=== PATIENT | female | born 1935 | race Caucasian/White ===

== ENCOUNTER 2016-06-13 18:23 | Emergency (ER) | payer OTHER ==
[~2016-06-13] VITALS: Ht 162.6 cm; Wt 74.5 kg
[~2016-06-13 18:23] MED LIST: ACTONEL150 MG PO; Aspirin E.C. PO; GEMFIBROZIL600 MG PO; MECLIZINE HCL12.5 M2 PO; Vitamin D PO
[2016-06-13 19:35] LABS: MCH 30.5 PG (29.0-34.0); MCV 92.5 FL (83-99); PLATELET COUNT 279 K/uL (156-360); RBC DIS.WIDTH-CV 12.9 % (11.8-14.6); RBC DIS.WIDTH-SD 42.7 % (39-53); WHITE BLOOD COUNT 9.2 K/uL (4.1-10.2)
[2016-06-13 19:42] LABS: CHLORIDE 104 mEq/L (99-109); POTASSIUM 4.8 mEq/L (3.7-5.4); SODIUM 140 mEq/L (136-147)
[2016-06-13 19:43] LABS: GLUCOSE 122 mg/dL (70-99)
[2016-06-13 19:45] LABS: ANION GAP 13 MEQ/L (2-14)
[2016-06-13 19:47] LABS: GFR ESTIMATE (CALCULATED) 51 mL/min/
[2016-06-13 19:48] LABS: UREA NITROGEN (BUN) 25 mg/dL (9-23)
[2016-06-13 19:54] LABS: TROP-I INTERPRETATION NEGATIVE; TROPONIN-I < 0.01 ng/mL (0.0-0.30)
[2016-06-13 21:09] VITALS: BP 161/71
== END 2016-06-13 21:30 | disposition home or self-care (01) ==
LOC: EME 18:23
DX: T39.395A Adverse effect of other nonsteroidal anti-inflammatory drugs [NSAID], initial encounter (principal); R11.0 Nausea; R42 Dizziness and giddiness; E78.5 Hyperlipidemia, unspecified; Z79.82 Long term (current) use of aspirin; Z88.2 Allergy status to sulfonamides
CPT/HCPCS: 71020; 80048; 84484; 85027; 93005; 99281; 99284

== ENCOUNTER 2016-06-18 10:36 | Emergency (ER) | payer OTHER ==
[~2016-06-18] VITALS: Ht 162.6 cm; Wt 72.0 kg
[2016-06-18 11:18] LABS: HEMATOCRIT 34.6 % (36.0-46.0); MCH 30.1 PG (29.0-34.0); MCHC 32.7 G/DL (30.0-36.0); MCV 92.3 FL (83-99); MEAN PLAT.VOLUME 9.5 uM^3 (9.5-12.4); PLATELET COUNT 262 K/uL (156-360); RBC DIS.WIDTH-CV 12.9 % (11.8-14.6); RED BLOOD COUNT 3.75 M/uL (3.80-5.20); WHITE BLOOD COUNT 6.4 K/uL (4.1-10.2)
[2016-06-18 11:26] LABS: CHLORIDE 105 mEq/L (99-109); POTASSIUM 3.8 mEq/L (3.7-5.4); SODIUM 142 mEq/L (136-147)
[2016-06-18 11:27] LABS: GLUCOSE 136 mg/dL (70-99)
[2016-06-18 11:29] LABS: ANION GAP 14 MEQ/L (2-14)
[2016-06-18 11:31] LABS: GFR ESTIMATE (CALCULATED) 35 mL/min/
[2016-06-18 11:32] LABS: UREA NITROGEN (BUN) 33 mg/dL (9-23)
[2016-06-18 11:34] LABS: TROP-I INTERPRETATION NEGATIVE; TROPONIN-I < 0.01 ng/mL (0.0-0.30)
[2016-06-18 13:55] LABS: ADD MIUA? YES; BILIRUBIN NEGATIVE; BLOOD SMALL; COLOR YELLOW ((YELLOW)); GLUCOSE (STRIP) NEGATIVE; KETONES NEGATIVE; LEUKOCYTES SMALL; NITRITE NEGATIVE; PROTEIN (STRIP) NEGATIVE; SPECIFIC GRAVITY 1.014 (1.000-1.030); UROBILINOGEN 0.2 MG/DL (0.2-1.0)
[2016-06-18 14:07] LABS: BACTERIA 3+ /HPF; EPITHELIAL CELLS RARE /HPF; GRANULAR CASTS 0-5 /LPF; HYALINE CASTS 0-5 /LPF; MUCUS TRACE /LPF; RED BLOOD CELLS 0-5 /HPF (0-5); WHITE BLOOD CELLS 15-20 /HPF (0-5)
[2016-06-18] MEDS ORDERED: ZOFRAN ODT8 MG PO (15:18)
[2016-06-18 15:37] VITALS: BP 167/72
== END 2016-06-18 15:38 | disposition home or self-care (01) ==
LOC: EME 10:36 → EXP 10:36
PROVIDERS: Physician Assistant
DX: B34.9 Viral infection, unspecified (principal); E86.0 Dehydration; E78.5 Hyperlipidemia, unspecified; Z88.2 Allergy status to sulfonamides
CPT/HCPCS: 71020; 80048; 81003; 84484; 85027; 93005; 99281; 99285; J7030

== ENCOUNTER 2016-12-04 14:35 | Observation (INO) | payer OTHER ==
[~2016-12-04] VITALS: Ht 162.6 cm; Wt 64.6 kg
[~2016-12-04 14:35] MED LIST changes: +ANTIVERT12.5 MG PO; -MECLIZINE HCL12.5 M2 PO; +ZOFRAN ODT8 MG PO
[2016-12-04 15:46] LABS: HEMATOCRIT 34.1 % (36.0-46.0); MCH 30.5 PG (29.0-34.0); MCHC 33.1 G/DL (30.0-36.0); MCV 92.2 FL (83-99); MEAN PLAT.VOLUME 10.2 uM^3 (9.5-12.4); PLATELET COUNT 252 K/uL (156-360); RBC DIS.WIDTH-CV 13.6 % (11.8-14.6); RBC DIS.WIDTH-SD 46.1 % (39-53); WHITE BLOOD COUNT 11.7 K/uL (4.1-10.2)
[2016-12-04 15:56] LABS: CHLORIDE 105 mEq/L (99-109)
[2016-12-04 15:57] LABS: POTASSIUM 3.9 mEq/L (3.7-5.4); SODIUM 140 mEq/L (136-147)
[2016-12-04 15:59] LABS: GLUCOSE 116 mg/dL (70-99)
[2016-12-04 16:00] LABS: ANION GAP 11 MEQ/L (2-14)
[2016-12-04 16:01] LABS: TOTAL BILIRUBIN 0.4 mg/dL (0.0-1.0)
[2016-12-04 16:02] LABS: ALKALINE PHOSPHATASE 184 IU/L (3-129); GFR ESTIMATE (CALCULATED) > 59 mL/min/
[2016-12-04 16:04] LABS: UREA NITROGEN (BUN) 16 mg/dL (9-23)
[2016-12-04 16:05] LABS: CREATINE KINASE 39 IU/L (1-294); TOTAL CK 39 IU/L (1-294)
[2016-12-04 16:14] LABS: TROP-I INTERPRETATION NEGATIVE; TROPONIN-I < 0.01 ng/mL (0.0-0.30)
[2016-12-04] MEDS ORDERED: LO-DOSE ASPIRIN81 M2 PO (20:44)
[2016-12-04] MEDS ORDERED: ZYLOPRIM100 MG PO (20:45)
[2016-12-04] MEDS ORDERED: VITAMIN D2000 UNIT PO (20:45)
[2016-12-04] MEDS ORDERED: PROTONIX40 MG PO (20:45)
[2016-12-04] MEDS ORDERED: ULTRAM50 MG PO (20:45)
[2016-12-04] MEDS ORDERED: PRESERVISION A1 EAC2 PO (20:46)
[2016-12-04] MEDS ORDERED: ALEVE220 MG PO (20:46)
[2016-12-04] MEDS ORDERED: SALINE NOSE SPR45 M1 BOTH NARES (20:46)
[2016-12-04] MEDS ORDERED: SALONPAS PATCH1 EAC1 TD (20:47)
[2016-12-04] MEDS ORDERED: MEDROL4 MG PO (20:47)
[2016-12-04 22:31] VITALS: BP 133/69
[2016-12-05 04:10] VITALS: BP 129/61
[2016-12-05 07:30] VITALS: BP 135/65
[2016-12-05 08:44] LABS: POINT-OF-CARE METER ID UU13113700
[2016-12-05] MEDS ORDERED: ANTIVERT25 MG PO (09:36)
[2016-12-05] MEDS ORDERED: ZOFRAN4 MG PO (09:36)
[2016-12-05] MEDS ORDERED: FLONASE16 G1 BOTH NARES (09:37)
[2016-12-05 10:19] LABS: EOSINOPHIL (%) 2.3 % (0-5); EOSINOPHIL COUNT 0.2 K/uL (0-0.3); HEMATOCRIT 35.1 % (36.0-46.0); IMMATURE GRANULOCYTE (%) 0.4 % (0.0-0.7); LYMPHOCYTE COUNT 2.2 K/uL (1.0-2.8); MCH 31.1 PG (29.0-34.0); MCHC 32.5 G/DL (30.0-36.0); MCV 95.6 FL (83-99); MEAN PLAT.VOLUME 10.4 uM^3 (9.5-12.4); MONOCYTE COUNT 0.4 K/uL (0-0.8); NEUTROPHIL (%) 64.2 % (45-76); PLATELET COUNT 268 K/uL (156-360); RBC DIS.WIDTH-CV 14.1 % (11.8-14.6); RBC DIS.WIDTH-SD 49.4 % (39-53); RED BLOOD COUNT 3.67 M/uL (3.80-5.20); WHITE BLOOD COUNT 7.8 K/uL (4.1-10.2)
[2016-12-05 11:20] VITALS: BP 122/57
[2016-12-05 12:33] LABS: POINT-OF-CARE METER ID UU13113700
== END 2016-12-05 14:53 | disposition home or self-care (01) ==
LOC: EME 14:35 → EDOF 21:02 → 5WEST 21:02 → ENRESERV 21:07 → 5WEST 21:47
PROVIDERS: Emergency Medicine; Hospitalist
DX: R42 Dizziness and giddiness (principal); E11.9 Type 2 diabetes mellitus without complications; I10 Essential (primary) hypertension; E78.5 Hyperlipidemia, unspecified; M81.0 Age-related osteoporosis without current pathological fracture; Z87.11 Personal history of peptic ulcer disease; H92.01 Otalgia, right ear; R09.81 Nasal congestion; H91.93 Unspecified hearing loss, bilateral; Z82.49 Family history of ischemic heart disease and other diseases of the circulatory system; Z83.3 Family history of diabetes mellitus; Z88.2 Allergy status to sulfonamides; Z88.8 Allergy status to other drugs, medicaments and biological substances
CPT/HCPCS: 70450; 80053; 82550; 82553; 82948; 84484; 85025; 85027; 93005; 99281; 99285; G0378; G8978 GP CH; G8979 GP CH; G8980 GP CH; G8987 GO CH; G8988 GO CH; G8989 GO CH; J1644; J2405

== ENCOUNTER 2017-04-19 11:40 | Emergency (ER) | payer OTHER ==
[~2017-04-19] VITALS: Ht 162.6 cm; Wt 65.8 kg
[~2017-04-19 11:40] MED LIST changes: +ALEVE220 MG PO; +ANTIVERT25 MG PO; +FLONASE16 G1 BOTH NARES; +LO-DOSE ASPIRIN81 M2 PO; +MEDROL4 MG PO; +PRESERVISION A1 EAC2 PO; +PROTONIX40 MG PO; +SALINE NOSE SPR45 M1 BOTH NARES; +SALONPAS PATCH1 EAC1 TD; +ULTRAM50 MG PO; +VITAMIN D2000 UNIT PO; +ZOFRAN4 MG PO; +ZYLOPRIM100 MG PO
[2017-04-19 13:53] LABS: BASOPHIL (%) 0.9 % (0-1); BASOPHIL COUNT 0.1 K/uL (0-0.1); EOSINOPHIL (%) 2.3 % (0-5); EOSINOPHIL COUNT 0.2 K/uL (0-0.3); HEMATOCRIT 36.1 % (36.0-46.0); IMMATURE GRANULOCYTE (%) 0.2 % (0.0-0.7); LYMPHOCYTE (%) 19.3 % (15-42); LYMPHOCYTE COUNT 1.3 K/uL (1.0-2.8); MCH 30.9 PG (29.0-34.0); MCHC 33.2 G/DL (30.0-36.0); MONOCYTE (%) 4.7 % (3-12); MONOCYTE COUNT 0.3 K/uL (0-0.8); NEUTROPHIL (%) 72.6 % (45-76); NEUTROPHIL COUNT 4.8 K/uL (1.8-6.4); PLATELET COUNT 264 K/uL (156-360); RBC DIS.WIDTH-CV 13.2 % (11.8-14.6); RBC DIS.WIDTH-SD 45.1 % (39-53); RED BLOOD COUNT 3.88 M/uL (3.80-5.20); WHITE BLOOD COUNT 6.6 K/uL (4.1-10.2)
[2017-04-19 14:02] LABS: CHLORIDE 106 mEq/L (99-109); POTASSIUM 4.8 mEq/L (3.7-5.4); SODIUM 139 mEq/L (136-147)
[2017-04-19 14:04] LABS: GLUCOSE 97 mg/dL (70-99)
[2017-04-19 14:08] LABS: CREATININE 0.9 mg/dL (0.6-1.3); GFR ESTIMATE (CALCULATED) > 59 mL/min/; UREA NITROGEN (BUN) 21 mg/dL (9-23)
[2017-04-19 14:15] LABS: TROP-I INTERPRETATION NEGATIVE; TROPONIN-I 0.01 ng/mL (0.0-0.30)
[2017-04-19 15:00] VITALS: BP 164/72
== END 2017-04-19 15:04 | disposition home or self-care (01) ==
LOC: EME 11:40
PROVIDERS: Physician Assistant
DX: R42 Dizziness and giddiness (principal); E78.5 Hyperlipidemia, unspecified; F41.9 Anxiety disorder, unspecified; Z79.82 Long term (current) use of aspirin; Z88.8 Allergy status to other drugs, medicaments and biological substances; Z88.2 Allergy status to sulfonamides
CPT/HCPCS: 70450; 71020; 80048; 84484; 85025; 93005; 99281; 99284